=== PATIENT | male | born 1950 | race Two or more races ===

== ENCOUNTER 2017-04-24 13:44 | Observation (INO) | payer MEDICARE, MEDICAID ==
[2017-04-24 15:05] LABS: ACETAMINOPHEN < 10 ug/mL (10-30)
--- NOTE | 2017-04-24 16:24 | CT ---
INDICATION: Seizure, whole body shaking with hyperventilation. Disoriented, vomited. Lasted 15 minutes apparently. This is the first seizure occurring apparently at [address] HEAD WITHOUT CONTRAST: Serial contiguous 2.5 and 5-mm sections were obtained through the brain without contrast and then repeated apparently due to motion. Examination was obtained 04/24/2017. No comparison study was available. Total Exam DLP = 1898.72 mGy-cm. Calcifications are noted in the internal carotid arteries. There appears to be a complex retention cyst in the left sphenoidal air cell, likely the result of previous sinusitis. Paranasal sinuses and mastoid air cells were otherwise well aerated. No definite cranial abnormality was seen. There is a focal area of low density abnormality in the area of the genu of the right internal capsule, which likely represents a moderate sized lacunar infarct. There appears to be some low density abnormality in the frontoparietal white matter on the right, which may represent microvascular disease type change. Additionally, an area of decreased density may be present in the linder/white matter interface, left frontoparietal area, which could represent an evolving thrombotic CVA and should be correlated clinically. A follow-up CT in 3-5 days or possibly an MRI may be of further diagnostic benefit. No definite shift of midline structures was identified. Ventricles are somewhat prominent, suggesting a degree of central atrophy. No bleeding site or hematoma was identified. IMPRESSION: 1. Cannot exclude an evolving minimal sized thrombotic CVA left frontoparietal area. 2. Possible microvascular disease area of the right frontoparietal white matter. 3. Lacunar infarct in the area of the genu of the right internal capsule. 4. Calcifications in the internal carotid arteries. 5. Retention cyst with complex appearance left sphenoidal air cell. Depending upon clinical correlation, follow-up CT in 3-5 days, and/or MRI, may be helpful for further evaluation. Report was called to Dr. Muse at 1451 hours, 04/24/2017. [email or web address]
--- NOTE | 2017-04-24 16:43 | EDM.PDOC ---
[id number]: SEIZURE Time Seen by Provider: 04/24/17 14:02 Source of Information: Reports: Patient, Family History Limitations: Reports: Altered Mental Status, Language Barrier - History of Present Illness INITIAL COMMENTS - FREE TEXT/NARRATIVE: 67 y.o.w.m -morbid obese, NIDDM, came to the ed due to LUQ abd. pain off and on. Pain is gone when he is straight up on his computer. The pain bad when he is is supine condition turning to the left. Pt has chronic lower back issues. No trauma. No other acute medical issues at this time. Onset: Today Onset Date: 04/24/17 Onset Time: 13:00 Duration: Hour(s):, Improving Location: Reports: Generalized denies Pain Score (Numeric/FACES): 0 - Related Data Allergies Allergy/AdvReac Type Severity Reaction Status Date / Time No Known Allergies Allergy Verified 04/24/17 14:00 Home Meds: Home Meds Chromium With Cinnamon 1 tab PO DAILY 04/24/17 [History] Losartan/Hydrochlorothiazide [Hyzaar 50-12.5 Tablet] 1 each PO BEDTIME 04/24/17 [History] Past Medical History Cardiovascular History: Reports: Other (See Below) Other Cardiovascular History: heart valve trouble Endocrine/Metabolic History: Reports: Diabetes, Type II, Other (See Below) Other Endocrine/Metabolic History: diabetes is diet controlled, has accucheks BID Social & Family History - Tobacco Use Smoking Status *Q: Never Smoker - Caffeine Use Caffeine Use: Reports: None - Recreational Drug Use Recreational Drug Use: No ED ROS GENERAL - Review of Systems Review Of Systems: Unable To Obtain ED EXAM, NEURO - Physical Exam Exam: See Below Exam Limited By: Language Barrier General Appearance: Alert, WD/WN, No Apparent Distress, Other (posticatal ) Eye Exam: Bilateral Eye: Normal Inspection Ears: Normal External Exam, Normal Canal Nose: Normal Inspection, Normal Mucosa Throat/Mouth: Other (tongue bite r ant tungue, notbleeding) Head Exam: Atraumatic, Normocephalic Neck: Normal Inspection, Supple, Non-Tender, Full Range of Motion Respiratory/Chest: No Respiratory Distress, Lungs Clear, Normal Breath Sounds Cardiovascular: Normal Peripheral Pulses, Regular Rate, Rhythm, No Edema, No Gallop, No JVD, No Murmur, No Rub GI/Abdominal: Normal Bowel Sounds, Soft, Non-Tender, No Organomegaly, No Distention, No Abnormal Bruit, No Mass, Pelvis Stable (Male) Exam: Deferred Rectal (Males) Exam: Deferred Neurological: Normal Dorsiflexion, CN II-XII Intact, Normal Plantar Flexion, Other (postictall) Back Exam: Normal Inspection, Full Range of Motion Extremities: Normal Inspection, Normal Range of Motion, Non-Tender, No Pedal Edema Psychiatric: Depressed Mood Skin Exam: Warm, Dry, Intact, Normal Color, No Rash Course - Vital Signs Text/Narrative:: 67 y.o.w.m -morbid obese, NIDDM, came to the ed due to LUQ abd. pain off and on. Pain is gone when he is straight up on his computer. The pain bad when he is is supine condition turning to the left. Pt has chronic lower back issues. No trauma. No other acute medical issues at this time. Pt was put in SZ precautions as he entered the ed. PE: Postictal male with a tongue bite. Imaging: CT Head: NAD Labs: CBC WNL, UDS neg, ETOH neg, Ketons 15 Glc 100, UA neg 4.42 PM Consultation: Dr. Acuna, Neurologist [facility]: MRI with and without contrast, EEG as an out patient. Keppra 500 mg bid till EEG does or does not confirm SZ disorder. Impression: First GM seizure. Mentally challenged Tx: NS Keppra Reexam: Pt was stable while here in the ed. Plan: admit till 10 am for MRI of brain w/wo contrast Last Recorded V/S: Last Vital Signs Temp 37.7 C 04/25/17 00:00 Pulse 78 04/25/17 00:00 Resp 18 04/25/17 00:00 BP 108/53 L 04/25/17 00:00 Pulse Ox 92 L 04/25/17 00:00 - Orders/Labs/Meds Orders: Active Orders 24 hr Category Date Time Status CXR [Chest 1V Frontal] [CR] Stat Exams 04/24/17 14:45 Taken Clindamycin HCl [Cleocin] Med 04/24/17 17:15 Active 450 mg PO Q6H Seizure Precautions [OM.PC] Routine Oth 04/24/17 14:01 Ordered EKG 12 Lead [EK] Routine Ther 04/24/17 14:00 Ordered Medication Orders Clindamycin HCl (Cleocin) 450 mg PO Q6H WILSNO Last Admin: 04/24/17 23:37 Dose: 450 mg Admin: 04/24/17 17:15 Dose: 450 mg Docusate Sodium (Colace) 100 mg PO BID PRN PRN Reason: Constipation Ondansetron HCl (Zofran) 4 mg IV Q4H PRN PRN Reason: Nausea/Vomiting Labs: Laboratory Tests 04/24/17 04/24/17 04/24/17 Range/Units 14:20 14:20 14:20 WBC 9.9 (4.5-12.0) X10-3/uL RBC 4.88 (4.30-5.75) x10(6)uL Hgb 15.0 (11.5-15.5) g/dL Hct 45.4 (30.0-51.3) % MCV 93.1 (80-96) fL MCH 30.8 (27.7-33.6) pg MCHC 33.0 (32.2-35.4) g/dL RDW 13.5 (11.5-15.5) % Plt Count 267 (125-369) X10(3)uL MPV 9.7 (7.4-10.4) fL Neut % (Auto) 73.7 (46-82) % Lymph % (Auto) 16.1 (13-37) % [place] % (Auto) 7.1 (4-12) % Eos % (Auto) 3 (1.0-5.0) % Baso % (Auto) 1 (0-2) % Neut # (Auto) 7.3 (1.6-8.3) # Lymph # (Auto) 1.6 (0.6-5.0) # [place] # (Auto) 0.7 (0.0-1.3) # Eos # (Auto) 0.2 (0.0-0.8) # Baso # (Auto) 0.1 (0.0-0.2) # Sodium 138 (135-145) mmol/L Potassium 3.4 L (3.5-5.3) mmol/L Chloride 102 (100-110) mmol/L Carbon Dioxide 27 (23-29) mmol/L BUN 15 (8-23) mg/dL Creatinine 0.9 (0.6-1.3) mg/dL Est Cr Clr Drug Dosing 55.56 mL/min Estimated GFR (MDRD) > 60 (>60) BUN/Creatinine Ratio 16.7 (9-20) Glucose 175 H (80-116) mg/dL Calcium 9.6 (8.6-10.2) mg/dL B-Natriuretic Peptide 21 (0-100) pg/mL Urine Color (YELLOW) Urine Appearance (CLEAR) Urine pH (5.0-6.5) Ur Specific [place] (1.010-1.025) Urine Protein (NEGATIVE) mg/dL Urine Glucose (UA) (NEGATIVE) mg/dL Urine Ketones (NEGATIVE) mg/dL Urine Occult Blood (NEGATIVE) Urine Nitrite (NEGATIVE) Urine Bilirubin (NEGATIVE) Urine Urobilinogen (NEGATIVE) mg/dL Ur Leukocyte Esterase (NEGATIVE) Urine RBC (0) Urine WBC (0) Ur Squamous Epith Cells (NS,R,O) Amorphous Sediment Urine Bacteria (NS) Urine Mucus (NS) Salicylates < 4.0 L (5.0-25.0) mg/dL Urine Opiates Screen (NEGATIVE) Ur Oxycodone Screen (NEGATIVE) Ur Propoxyphene Screen (NEGATIVE) Acetaminophen < 10 L (10-30) ug/mL Ur Barbituates Screen (NEGATIVE) Ur Tricyclics Screen (NEGATIVE) Ur Phencyclidine Scrn (NEGATIVE) Ur Amphetamine Screen (NEGATIVE) Urine MDMA Screen (NEGATIVE) U Benzodiazepines Scrn (NEGATIVE) U Cocaine Metab Screen (NEGATIVE) U Marijuana (THC) Screen (NEGATIVE) Ethyl Alcohol (<0.01) % 04/24/17 04/24/17 04/24/17 Range/Units 14:20 14:50 14:50 WBC (4.5-12.0) X10-3/uL RBC (4.30-5.75) x10(6)uL Hgb (11.5-15.5) g/dL Hct (30.0-51.3) % MCV (80-96) fL MCH (27.7-33.6) pg MCHC (32.2-35.4) g/dL RDW (11.5-15.5) % Plt Count (125-369) X10(3)uL MPV (7.4-10.4) fL Neut % (Auto) (46-82) % Lymph % (Auto) (13-37) % [place] % (Auto) (4-12) % Eos % (Auto) (1.0-5.0) % Baso % (Auto) (0-2) % Neut # (Auto) (1.6-8.3) # Lymph # (Auto) (0.6-5.0) # [place] # (Auto) (0.0-1.3) # Eos # (Auto) (0.0-0.8) # Baso # (Auto) (0.0-0.2) # Sodium (135-145) mmol/L Potassium (3.5-5.3) mmol/L Chloride (100-110) mmol/L Carbon Dioxide (23-29) mmol/L BUN (8-23) mg/dL Creatinine (0.6-1.3) mg/dL Est Cr Clr Drug Dosing mL/min Estimated GFR (MDRD) (>60) BUN/Creatinine Ratio (9-20) Glucose (80-116) mg/dL Calcium (8.6-10.2) mg/dL B-Natriuretic Peptide (0-100) pg/mL Urine Color Yellow (YELLOW) Urine Appearance Clear (CLEAR) Urine pH 5.0 (5.0-6.5) Ur Specific [place] 1.020 (1.010-1.025) Urine Protein Negative (NEGATIVE) mg/dL Urine Glucose (UA) 100 H (NEGATIVE) mg/dL Urine Ketones 15 H (NEGATIVE) mg/dL Urine Occult Blood Negative (NEGATIVE) Urine Nitrite Negative (NEGATIVE) Urine Bilirubin Negative (NEGATIVE) Urine Urobilinogen Normal (NEGATIVE) mg/dL Ur Leukocyte Esterase Negative (NEGATIVE) Urine RBC 0-5 (0) Urine WBC 0-5 (0) Ur Squamous Epith Cells Occasional (NS,R,O) Amorphous Sediment Few Urine Bacteria Rare H (NS) Urine Mucus Few H (NS) Salicylates (5.0-25.0) mg/dL Urine Opiates Screen Negative (NEGATIVE) Ur Oxycodone Screen Negative (NEGATIVE) Ur Propoxyphene Screen Negative (NEGATIVE) Acetaminophen (10-30) ug/mL Ur Barbituates Screen Negative (NEGATIVE) Ur Tricyclics Screen Negative (NEGATIVE) Ur Phencyclidine Scrn Negative (NEGATIVE) Ur Amphetamine Screen Negative (NEGATIVE) Urine MDMA Screen Negative (NEGATIVE) U Benzodiazepines Scrn Negative (NEGATIVE) U Cocaine Metab Screen Negative (NEGATIVE) U Marijuana (THC) Screen Negative (NEGATIVE) Ethyl Alcohol < 0.01 (<0.01) % Meds: Medications Generic Name Dose Route Start Last Admin Trade Name Freq PRN Reason Stop Dose Admin Clindamycin HCl 450 mg 04/24/17 17:15 04/24/17 23:37 Cleocin PO 450 mg Q6H WILSON Administration Docusate Sodium 100 mg 04/24/17 17:54 Colace PO BID PRN Constipation Ondansetron HCl 4 mg 04/24/17 17:54 Zofran IV Q4H PRN Nausea/Vomiting Discontinued Medications Generic Name Dose Route Start Last Admin Trade Name Freq PRN Reason Stop Dose Admin Levetiracetam 500 mg 04/24/17 17:02 04/24/17 17:16 Keppra PO 04/24/17 17:03 500 mg ONETIME STA Administration Departure - Departure Time of Disposition: 17:53 Disposition: Refer to Observation Condition: Fair Clinical Impression: Seizure - Discharge Information - My Orders Last 24 Hours: My Active Orders 04/24/17 14:00 EKG 12 Lead [EK] Routine 04/24/17 14:01 Seizure Precautions [OM.PC] Routine 04/24/17 14:45 CXR [Chest 1V Frontal] [CR] Stat 04/24/17 17:15 Clindamycin HCl [Cleocin] 450 mg PO Q6H - Assessment/Plan Last 24 Hours: My Active Orders 04/24/17 14:00 EKG 12 Lead [EK] Routine 04/24/17 14:01 Seizure Precautions [OM.PC] Routine 04/24/17 14:45 CXR [Chest 1V Frontal] [CR] Stat 04/24/17 17:15 Clindamycin HCl [Cleocin] 450 mg PO Q6H
[2017-04-24] MEDS ORDERED: levETIRAcetam 500 MG Tab PO STA (17:02)
[2017-04-24] MEDS: Clindamycin HCl 150 MG Cap PO SCH ×2 (17:15→23:37)
[2017-04-24] MEDS ORDERED: Ondansetron 4 MG/2 ML SDV IV PRN (17:54)
[2017-04-24] MEDS ORDERED: Docusate Sodium 100 MG Cap PO PRN (17:54)
[2017-04-25] MEDS: Clindamycin HCl 150 MG Cap PO SCH ×3 (06:45→18:01)
[2017-04-25] MEDS ORDERED: Sodium Chloride 0.9% 10 ML Syringe FLUSH PRN (08:27)
[2017-04-25] MEDS ORDERED: Gadobutrol 7.5 mMOL/7.5 ML SDV IV PRN (11:27)
--- NOTE | 2017-04-25 11:41 | CR ---
INDICATION: Possible aspiration. CHEST: An AP upright portable view of the chest was obtained 04/24/2017. No comparisons were available. The heart did not appear grossly enlarged, but may be at the upper limits of normal in size. The aorta is mildly tortuous. Overlying EKG leads are noted. A definite active infiltrate or effusion was not identified - no definite aspiration is seen. IMPRESSION: No acute process. MTDD
--- NOTE | 2017-04-25 14:11 | PCM.HP ---
H&P History of Present Illness - General Admit Problem/Dx: Admission Diagnosis/Problem Admission Diagnosis/Problem Seizure Source of Information: Family, Other (Patient does not speak [place]. His sister who is his drilling assistant is his clay stain mixer) - History of Present Illness Initial Comments - Free Text/Narative: This is a 66-year-old male patient that had unprovoked seizure yesterday. His sister observe it says it lasted for 5 minutes, he should call over and foamed at the most. Afterwards he was combative for at least a half an hour. The called the ambulance who arrived in 20 minutes then brought into the hospital. He's never had a seizure before. Now he denies diplopia, blurred vision, dysphagia, aphasia, lateralized weakness. He was recently diagnosed with diabetes. denies Pain Score (Numeric/FACES): 0 - Related Data Allergies/Adverse Reactions: Allergies Allergy/AdvReac Type Severity Reaction Status Date / Time No Known Allergies Allergy Verified 04/24/17 14:00 Home Medications: Home Meds Chromium With Cinnamon 1 tab PO DAILY 04/24/17 [History] Losartan/Hydrochlorothiazide [Hyzaar 50-12.5 Tablet] 1 each PO BEDTIME 04/24/17 [History] Past Medical History Cardiovascular History: Reports: Cardiomyopathy, Hypertension, Other (See Below) Other Cardiovascular History: heart valve trouble Psychiatric History: Reports: Anxiety, Developmental Delay Endocrine/Metabolic History: Reports: Diabetes, Type II, Other (See Below) Other Endocrine/Metabolic History: diabetes is diet controlled, has accucheks BID Social & Family History - Tobacco Use Smoking Status *Q: Never Smoker - Caffeine Use Caffeine Use: Reports: None - Recreational Drug Use Recreational Drug Use: No H&P Review of Systems - Review of Systems: Review Of Systems: See Below General: Reports: No Symptoms HEENT: Reports: No Symptoms Pulmonary: Reports: No Symptoms Cardiovascular: Reports: No Symptoms Gastrointestinal: Reports: No Symptoms Genitourinary: Reports: No Symptoms Musculoskeletal: Reports: No Symptoms Skin: Reports: No Symptoms Psychiatric: Reports: No Symptoms Neurological: Reports: Other (See history of present illness) Hematologic/Lymphatic: Reports: No Symptoms Immunologic: Reports: No Symptoms Exam - Exam Exam: See Below - Vital Signs Vital Signs: Last Vital Signs Temp 99.2 F 04/25/17 08:30 Pulse 81 04/25/17 08:30 Resp 18 04/25/17 08:30 BP 115/40 L 04/25/17 08:30 Pulse Ox 96 04/25/17 08:30 Weight: 143 lb 1.6 oz - Exam General: Alert, Oriented, Cooperative HEENT: PERRLA, Hearing Intact, Mucosa Moist & [place], Posterior Pharynx Clear, Pupils Equal, TMs Clear Neck: Supple, Trachea Midline Lungs: Clear to Auscultation, Normal Respiratory Effort. No: Crackles, Rales, Rhonchi, Rub Cardiovascular: Regular Rate, Regular Rhythm. No: Irregular Rhythm, Systolic Murmur GI/Abdominal Exam: Normal Bowel Sounds, Soft, Non-Tender, No Organomegaly, No Distention, No Abnormal Bruit, No Mass Back Exam: Normal Inspection, Full Range of Motion, NT Extremities: Normal Inspection, Normal Range of Motion, Non-Tender, No Pedal Edema Skin: Warm Neurological: Cranial Nerves Intact, Strength Equal Bilateral, Normal Speech, Normal Tone Neuro Extensive - Mental Status: Alert, Oriented x3, Normal Mood/Affect, Normal Cognition Neuro Extensive - Motor, Sensory, Reflexes: CN II-XII Intact, Normal Gait Psychiatric: Alert, Normal Affect, Normal Mood - Patient Data Result Diagrams: 04/24/17 14:20 04/24/17 14:20 *Q Meaningful Use (ADM) - VTE *Q VTE Criteria *Q: - Stroke *Q Stroke Criteria *Q: - AMI *Q AMI Criteria *Q: - Problem List (1) Seizure SNOMED Code(s): 83974154 ICD Code: R56.9 - UNSPECIFIED CONVULSIONS Status: Acute Current Visit: Yes Problem List Initiated/Reviewed/Updated: Yes Orders Last 24hrs: Active Orders 24 hr Category Date Time Status Regular Diet [DIET] Diet 04/25/17 Breakfast Active Ang Head wo Cont [MR] Routine Exams 04/24/17 20:06 Ordered Brain w wo Cont [MR] Routine Exams 04/24/17 20:06 Taken Sodium Chloride 0.9% [Saline Flush] Med 04/25/17 08:27 Active 10 ml FLUSH ASDIRECTED PRN Seizure Precautions [OM.PC] Routine Oth 04/24/17 17:57 Ordered Medication Orders Clindamycin HCl (Cleocin) 450 mg PO Q6H WILSON Last Admin: 04/25/17 13:22 Dose: 450 mg Admin: 04/25/17 06:45 Dose: 450 mg Admin: 04/24/17 23:37 Dose: 450 mg Admin: 04/24/17 17:15 Dose: 450 mg Docusate Sodium (Colace) 100 mg PO BID PRN PRN Reason: Constipation Ondansetron HCl (Zofran) 4 mg IV Q4H PRN PRN Reason: Nausea/Vomiting Sodium Chloride (Saline Flush) 10 ml FLUSH ASDIRECTED PRN PRN Reason: Keep Vein Open Assessment/Plan Comment:: 1. Admit observation with seizure precautions. 2. Regular diet. 3. Ativan when necessary for seizures. 4. Blood sugar checks. 5. CT scan showed old lacunar infarct cannot rule out evolving CVA so MRI for today.
--- NOTE | 2017-04-25 14:24 | PCM.SN ---
- Free Text/Narrative Note: MRIs done and reading is pending. The ER doctor talked to Dr. Austin neurologist and Nice who recommended the MRI of course and Keppra 500 mg twice a day until the EEG is done.
--- NOTE | 2017-04-25 14:26 | PCM.DCSUM1 ---
Discharge Summary - Hospital Course Free Text/Narrative:: Hospital course-patient was admitted and observed for almost 24 hours. He had no other seizure activity. CT initially showed old lacunar infarct. The radiologist states he cannot rule out evolving left renal CVA. Patient had MRI. He had no residual from his seizures. He had a normal exam although is limited due to language barrier. The ER doctor talked to Dr. Austin neurologist Mikhail. He recommended Keppra 500 mg twice a day until he has a EEG. Sent home on his regular medicines and Keppra 500 mg twice a day and order EEG. Follow-up with Jeannine Angel in 1 week. Brief History: This is a 66-year-old male patient that had unprovoked seizure yesterday. His sister observe it says it lasted for 5 minutes, he should call over and foamed at the most. Afterwards he was combative for at least a half an hour. The called the ambulance who arrived in 20 minutes then brought into the hospital. He's never had a seizure before. Now he denies diplopia, blurred vision, dysphagia, aphasia, lateralized weakness. He was recently diagnosed with diabetes. - Discharge Data Discharge Date: 04/25/17 Discharge Disposition: Home, Self-Care 01 Condition: Good - Discharge Diagnosis/Problem(s) (1) Seizure SNOMED Code(s): 03875710 ICD Code: R56.9 - UNSPECIFIED CONVULSIONS Status: Acute Current Visit: Yes - Patient Instructions Diet: Diabetic Diet Activity: As Tolerated Driving: Do Not Drive Showering/Bathing: May Shower Notify Provider of: Fever, Increased Pain Other/Special Instructions: 1. Recheck with primary provider in one week. 2. Set up EEG. 3. The new medicines Keppra 500 mg twice a day per neurology recommendation - Discharge Plan Prescriptions/Med Rec: levETIRAcetam [Keppra] 500 mg PO BID #60 tablet Home Medications: Home Meds Chromium With Cinnamon 1 tab PO DAILY 04/24/17 [History] Losartan/Hydrochlorothiazide [Hyzaar 50-12.5 Tablet] 1 each PO BEDTIME 04/24/17 [History] levETIRAcetam [Keppra] 500 mg PO BID #60 tablet 04/25/17 [Rx] Forms: ED Department Discharge Referrals: Maile Mitchell NP [Primary Care Provider] - - Patient Data Vitals - Most Recent: Last Vital Signs Temp 99.2 F 04/25/17 08:30 Pulse 81 04/25/17 08:30 Resp 18 04/25/17 08:30 BP 115/40 L 04/25/17 08:30 Pulse Ox 96 04/25/17 08:30 Weight - Most Recent: 143 lb 1.6 oz I&O - Last 24 hours: Intake & Output 04/24/17 04/25/17 04/25/17 22:59 06:59 14:59 Intake Total 240 Balance 240 Med Orders - Current: Current Medications Clindamycin HCl (Cleocin) 450 mg PO Q6H [facility] Last Admin: 04/25/17 13:22 Dose: 450 mg Docusate Sodium (Colace) 100 mg PO BID PRN PRN Reason: Constipation Ondansetron HCl (Zofran) 4 mg IV Q4H PRN PRN Reason: Nausea/Vomiting Sodium Chloride (Saline Flush) 10 ml FLUSH ASDIRECTED PRN PRN Reason: Keep Vein Open Discontinued Medications Gadobutrol (Gadavist) 6.5 ml IV . DIRECTED PRN PRN Reason: RADIOLOGY EXAM Stop: 04/25/17 11:28 Last Admin: 04/25/17 12:44 Dose: 6.5 ml Levetiracetam (Keppra) 500 mg PO ONETIME STA Stop: 04/24/17 17:03 Last Admin: 04/24/17 17:16 Dose: 500 mg *Q Meaningful Use (DIS) - VTE *Q VTE Criteria *Q: - Stroke *Q Stroke Criteria *Q: - AMI *Q AMI Criteria *Q:
[2017-04-25 15:07] VITALS: BP 120/86
[2017-04-25] MEDS ORDERED: levETIRAcetam 500 MG Tab PO ONE (17:43)
== END 2017-04-25 18:05 | disposition home or self-care (01) ==
LOC: FB.ED 13:44 → FB.MS 17:54
PROVIDERS: ADMIT Family Medicine; ATTEND Family Medicine
DX: R56.9 Unspecified convulsions (principal); I67.82 Cerebral ischemia; I10 Essential (primary) hypertension; F41.9 Anxiety disorder, unspecified; E11.9 Type 2 diabetes mellitus without complications; Z79.899 Other long term (current) drug therapy; I65.23 Occlusion and stenosis of bilateral carotid arteries; Z86.73 Personal history of transient ischemic attack (TIA), and cerebral infarction without residual deficits
CPT/HCPCS: 36415; 70450; 70544; 70553; 71010; 80048; 80305; 81001; 83880; 85025; 93005; 99217; 99219; 99285; A9270; A9585; G0378; G0480